=== PATIENT | male | born 1985 | race Caucasian/White ===

== ENCOUNTER → 2021-02-27 | Outpatient (CLI) | payer BC | END | disposition home or self-care (01) | LOC: LABWHC1 09:28 | PROVIDERS: ATTEND Otolaryngology | DX: Z01.818 Encounter for other preprocedural examination (principal); I10 Essential (primary) hypertension | CPT/HCPCS: 93005 ==

== ENCOUNTER → 2021-11-03 | Outpatient (CLI) | payer BC ==
[2021-11-03 14:50] VITALS: TEMP 97.7
[2021-11-03] MEDS: CASIRIVIMAB (REGN10933) (EUA) 600 MG, IMDEVIMAB (REGN10987) (EUA) 600 MG in SODIUM CHLO... IVPB NR (14:53)
[2021-11-03] MEDS: SODIUM CHLORIDE 0.9% 500 ML 500 ML in EMPTY BAG 1 BAG IV PRN (14:54)
[2021-11-03] MEDS: SODIUM CHLORIDE 0.9% 50 ML IVPB ONE (15:16)
[2021-11-03 15:59] VITALS: BP 112/67; PULSE 85; RESP 18
== END | disposition home or self-care (01) ==
LOC: PROCWHC3 14:13
PROVIDERS: ATTEND Nurse Practitioner Family
DX: U07.1 COVID-19 (principal)
CPT/HCPCS: 96360; Q0244; M0243